=== PATIENT | male | born 1940 | race Caucasian/White ===

== ENCOUNTER 2017-11-15 14:56 | Emergency (ER) | payer MEDICARE, OTHER ==
--- NOTE | 2017-11-15 16:06 | RAD ---
Indication: Left knee pain. 4 views of the left knee demonstrates no fracture. No other bone or joint abnormality is identified. IMPRESSION: No fracture of the left knee is noted.
--- NOTE | 2017-11-15 17:10 | ED ---
Lower Extremity - HPI Summary HPI Summary: Patient is a 77-year-old male presenting to the ED with left knee pain. History of his knee giving out of joints in the past and he states it is always been able to get back into place, however he feels the knee has given out again , however has not been able to get the knee back into place. He is unable to ambulate. He is slightly flexed at the knee and states he is unable to flex or extend at the joint. There is no erythema or ecchymosis. The area is not warm or edematous. Symptoms began a few days ago and have worsened over the past few days and now is unable to ambulate completely. He has been taking Aleve morning and night. He states he has had several issues with this knee in the past, however has never had it looked at and states he would not like surgery. - History of Current Complaint Chief Complaint: EDExtremityLower Stated Complaint: LT KNEE PAIN Time Seen by Provider: 11/15/17 15:34 Hx Obtained From: Patient Mechanism Of Injury: Direct Blow Onset of Pain: Minutes Onset/Duration: Minutes Severity Initially: Moderate Severity Currently: Moderate Pain Intensity: 0 Pain Scale Used: 0-10 Numeric Timing: Constant Location: Is Discrete @ - left knee Associated Signs And Symptoms: Negative: Swelling, Redness, Bruising Aggravating Factor(s): Standing, Ambulation Alleviating Factor(s): Rest Able to Bear Weight: No - Risk Factors Gout Risk Factors: Age Over 40 DVT Risk Factors: Negative Septic Arthritis Risk Factor: Negative - Allergies/Home Medications Allergies/Adverse Reactions: Allergies Allergy/AdvReac Type Severity Reaction Status Date / Time No Known Allergies Allergy Verified 11/15/17 15:05 PMH/Surg Hx/FS Hx/Imm Hx Previously Healthy: Yes - Immunization History Hx Pertussis Vaccination: No Immunizations Up to Date: Yes Infectious Disease History: No Infectious Disease History: Denies: Traveled Outside the [place] in Last 30 Days - Social History Occupation: Unemployed Lives: With Family Alcohol Use: Occasionally Hx Substance Use: No Substance Use Type: Reports: None Smoking Status (MU): Former Smoker Review of Systems Constitutional: Negative Negative: Fever, Chills, Fatigue, Skin Diaphoresis Negative: Palpitations, Chest Pain Negative: Shortness Of Breath, Cough Negative: Abdominal Pain, Vomiting, Diarrhea Positive: Arthralgia, Myalgia Skin: Negative All Other Systems Reviewed And Are Negative: Yes Physical Exam Triage Information Reviewed: Yes Vital Signs On Initial Exam: Initial Vitals Temp Pulse Resp BP Pulse Ox 99.6 F 80 17 144/77 95 11/15/17 14:59 11/15/17 14:59 11/15/17 14:59 11/15/17 14:59 11/15/17 14:59 Vital Signs Reviewed: Yes Appearance: Positive: Well-Appearing, Well-Nourished Skin: Positive: Warm, Skin Color Reflects Adequate Perfusion Head/Face: Positive: Normal Head/Face Inspection Eyes: Positive: DANNY, Conjunctiva Clear Neck: Positive: Supple, Nontender, No Lymphadenopathy Respiratory/Lung Sounds: Positive: Clear to Auscultation, Breath Sounds Present Cardiovascular: Positive: RRR, Pulses are Symmetrical in both Upper and Lower Extremities Musculoskeletal: Positive: Limited @ - flexion and extension. Negative: Edema Left, Edema Right Neurological: Positive: Alert, Oriented to Person Place, Time, Speech Normal Psychiatric: Positive: Normal, Affect/Mood Appropriate Diagnostics - Vital Signs Vital Signs Temp Pulse Resp BP Pulse Ox 11/15/17 14:59 99.6 F 80 17 144/77 95 - Laboratory Lab Statement: Any lab studies that have been ordered have been reviewed, and results considered in the medical decision making process. Lower Extremity Course/Dx - Course Course Of Treatment: On physical examination, the knee shows no signs of infection. No erythema, warmth or swelling to the knee. The knee is slightly flexed and patient states he is unable to flex or extend. He is requesting a knee immobilizer. X-ray obtained which shows no fracture or other acute trauma. Patient remains unable to ambulate without knee brace. He is able to ambulate with a knee brace and states this has improved his symptoms. Unable to perform anterior drawer, Ranjit's test as patient states he is unable to perform these tests due to limited mobility. There is slight swelling to the lower extremity, however without pain, erythema or palpable cord to the calf. Denies any pain to the calf. Swelling likely chronic and this improves with elevation and ice. He is given knee immobilizer and orthopedic follow-up. He is encouraged to continue to take Aleve at this time. - Diagnoses Differential Diagnosis/HQI/PQRI: Positive: Sprain, Strain Provider Diagnoses: Knee injury Discharge - Sign-Out/Discharge Documenting (check all that apply): Patient Departure - Discharge Plan Condition: Stable Disposition: HOME Patient Education Materials: Swollen Knee Joint (ED) Referrals: Khanh Frausto MD [Medical Doctor] - Rebecca Grande MD [Primary Care Provider] - Additional Instructions: Aleve twice daily 3-4 days Ice to the area as much as possible Elevation Please follow-up with Dr. Jurado If symptoms worsen, return to the ED Knee immobilizer for ambulation - Billing Disposition and Condition Condition: STABLE Disposition: Home
[2017-11-15 17:11] VITALS: BP 142/80
== END 2017-11-15 17:09 | disposition home or self-care (01) ==
LOC: ED 14:56
DX: S89.92XA Unspecified injury of left lower leg, initial encounter (principal); M25.562 Pain in left knee; X58.XXXA Exposure to other specified factors, initial encounter; Y92.9 Unspecified place or not applicable; Z87.891 Personal history of nicotine dependence
CPT/HCPCS: 99282

== ENCOUNTER 2019-07-09 08:03 | Emergency (ER) | payer MEDICARE, OTHER ==
[2019-07-09] MEDS ORDERED: Lidocaine PATCH 5%* 1 PATCH TRANSDERM ONE (08:26)
[2019-07-09] MEDS ORDERED: Ketorolac *IM* INJ* 60 MG/2 ML VIAL IM ONE (08:26)
--- NOTE | 2019-07-09 08:28 | ED ---
Complex/Multi-Sys Presentation - HPI Summary HPI Summary: 79 y/o male presented to [facility] for lower back and right hip pain rated 8/10 present for weeks. Pt endorses intermittent numbness in right toes and denies constipation, urinary sx, and abdominal pain. Pt states he was showering on 06/26 when he felt a pop and has had worsening pain since. He states he can feel swelling in his hip. Pain is worse in the morning and pt has been taking Aleve for pain. Pt had surgery for 2 ruptured disks in separate procedures 4 and 5 years ago, and states he has been without pain since. Hx of HTN controlled by medication noted. - History Of Current Complaint Chief Complaint: EDBackInjuryPain Time Seen by Provider: 07/09/19 08:10 Hx Obtained From: Patient Onset/Duration: Lasting Weeks, Still Present Severity Currently: Severe Location: Pain At: - lower back, right hip Alleviating Factor(s): Aleve Associated Signs And Symptoms: Positive: Edema, Back Pain, Other - positive - hip pain, intermittent numbness to right toes; negative - urinary sx. Negative : Abdominal Pain - Allergies/Home Medications Allergies/Adverse Reactions: Allergies Allergy/AdvReac Type Severity Reaction Status Date / Time No Known Allergies Allergy Verified 07/09/19 08:09 Home Medications: Home Medications Atorvastatin* [Lipitor 20 MG*] 20 mg PO DAILY 07/09/19 [History Confirmed ] Finasteride TAB* [Proscar TAB*] 5 mg PO DAILY 07/09/19 [History Confirmed ] Irbesartan/Hydrochlor 150/12.5 1 tab PO DAILY 07/09/19 [History Confirmed ] Levothyroxine TAB* [Synthroid TAB*] 50 mcg PO DAILY 07/09/19 [History Confirmed 07/09/19] Tamsulosin CAP* [Flomax CAP*] 1 cap PO DAILY 07/09/19 [History Confirmed ] Umeclidin/Vilant 62.5 MDI(NF) [ANORO 62.5/25 Ellipta DEVICE (NF)] 1 puff INH DAILY 07/09/19 [History Confirmed 07/09/19] buPROPion HCl [Bupropion Xl] 150 mg PO DAILY 07/09/19 [History Confirmed ] hydroCHLOROthiazide [Hydrochlorothiazide] 1 cap PO DAILY 07/09/19 [History Confirmed 07/09/19] predniSONE [Prednisone 5 MG TAB] 5 mg PO DAILY 07/09/19 [History Confirmed 07/08] PMH/Surg Hx/FS Hx/Imm Hx Cardiovascular History: Reports: Hx Hypertension Sensory History: Denies: Hx Legally Blind, Hx Deafness Opthamlomology History: Denies: Hx Legally Blind EENT History: Denies: Hx Deafness Infectious Disease History: No Infectious Disease History: Denies: Traveled Outside the [place] in Last 30 Days - Family History Known Family History: Negative: Hypertension - Social History Alcohol Use: Occasionally Hx Substance Use: No Substance Use Type: Reports: None Smoking Status (MU): Former Smoker Review of Systems Gastrointestinal: Other - negative - constipation Negative: Abdominal Pain Genitourinary: Negative Positive: Edema - right hip, Other - lower back and right hip pain Positive: Numbness - intermittent, right toes All Other Systems Reviewed And Are Negative: Yes Physical Exam - Summary Physical Exam Summary: Constitutional: Well-developed, Well-nourished, Alert. (-) Distressed Skin: Warm, Dry HENT: Normocephalic; Atraumatic Eyes: Conjunctiva normal Neck: Musculoskeletal ROM normal neck. (-) JVD, (-) Stridor, (-) Tracheal deviation Cardio: Rhythm regular, rate normal, Heart sounds normal; Intact distal pulses; The pedal pulses are 2+ and symmetric. Radial pulses are 2+ and symmetric. (-) Murmur Pulmonary/Chest wall: Effort normal. (-) Respiratory distress, (-) Wheezes, (-) Rales Abd: Soft, (-) tenderness, (-) Distension, (-) Guarding, (-) Rebound Musculoskeletal: (-) Edema; Tender to palpation over region of right SI joint; Old lumbar spinal surgery scar noted; No erythema or bruising Lymph: (-) Cervical adenopathy Neuro: Alert, Oriented x3 Psych: Mood and affect Normal Triage Information Reviewed: Yes Vital Signs On Initial Exam: Initial Vitals Temp Pulse Resp BP Pulse Ox 98.8 F 91 16 149/51 95 07/09/19 08:06 07/09/19 08:06 07/09/19 08:06 07/09/19 08:06 07/09/19 08:06 Vital Signs Reviewed: Yes Procedures - Sedation Patient Received Moderate/Deep Sedation with Procedure: No Diagnostics - Vital Signs Vital Signs Temp Pulse Resp BP Pulse Ox 07/09/19 08:06 98.8 F 91 16 149/51 95 - Laboratory Lab Statement: Any lab studies that have been ordered have been reviewed, and results considered in the medical decision making process. - Radiology Xray lumbar spine Radiology Interpretation Completed By: Radiologist Summary of Radiographic Findings: IMPRESSION: STATUS POST LAMINECTOMY AND SPINAL FUSION. This report was reviewed by Dr. Henderson. Complex Multi-Symp Course/Dx Course Of Treatment: 79 y/o male presented to [facility] for lower back and right hip pain rated 8/10 present for weeks. Pt endorses intermittent numbness in right toes and denies constipation, urinary sx, and abdominal pain. Pt states he was showering on 06/27/19 when he felt a pop and has had worsening pain since. He states he can feel swelling in his hip. Pain is worse in the morning and pt has been taking Aleve for pain. Pt had surgery for 2 ruptured disks in separate procedures 4 and 5 years ago, and states he has been without pain since. Hx of HTN controlled by medication noted. Exam showed tenderness to palpation over region of right SI joint; Old lumbar spinal surgery scar noted; No erythema or bruising. X-ray lumbar spine showed STATUS POST LAMINECTOMY AND SPINAL FUSION. Pt was given 60mg IM Toradol and 1 patch transderm Lidocaine. Pt was diagnosed with Lower back pain; and discharged to home. - Diagnoses Provider Diagnoses: Lower back pain - Critical Care Time Critical Care Statement: Critical care time is provided exclusive of any time spent performing procedures. Discharge ED - Sign-Out/Discharge Documenting (check all that apply): Patient Departure - dc - Discharge Plan Condition: Stable Disposition: HOME Patient Education Materials: Back Pain (ED) Referrals: Rebecca Grande MD [Primary Care Provider] - Additional Instructions: Follow up with your primary care provider in 1-3 days. If you experience new or worsening symptoms please return to the ER. - Billing Disposition and Condition Condition: STABLE Disposition: Home - Attestation Statements Document Initiated by Scribe: Yes Documenting Scribe: Kei Stephens Provider For Whom Scribe is Documenting (Include Credential): Joseph Henderson, DO Scribe Attestation: IKei, scribed for Joseph Henderson DO on 07/09/19 at 1206. Scribe Documentation Reviewed: Yes Provider Attestation: The documentation as recorded by the Kei cates accurately reflects the service I personally performed and the decisions made by , Joseph Henderson DO Status of Scribe Document: Viewed
[2019-07-09 10:14] VITALS: BP 136/86
[2019-07-09] MEDS ORDERED: Lidocaine Patch REMOVE* 1 NOTE MISC SCH (21:00)
== END 2019-07-09 10:07 | disposition home or self-care (01) ==
LOC: ED 08:03
DX: M54.5 Low back pain (principal); R60.9 Edema, unspecified; M54.9 Dorsalgia, unspecified; I10 Essential (primary) hypertension; Z87.891 Personal history of nicotine dependence; Z79.52 Long term (current) use of systemic steroids; Z79.890 Hormone replacement therapy; Z79.899 Other long term (current) drug therapy
CPT/HCPCS: 72100; 96372; 99282; A9270-GY; J1885

== ENCOUNTER 2022-09-03 11:09 | Inpatient (IN) ==
[~2022-09-03 11:09] MED LIST: Buffered Lidocaine 1% SYRIN 1 ml INTRADERM ONE; Lactated Ringers 1000 ml BAG 1,000 ML IV SCH
[2022-09-03] MEDS ORDERED: Propofol 10 MG/ML 20 ML BTL ONE ×3 (12:07→13:25)
[2022-09-03] MEDS ORDERED: Lidocaine 2% PF 5 ML VIAL ONE (12:08)
[2022-09-03 12:09] LABS: Rapid COVID-19 Molecular Undetected (Undetected)
[2022-09-03] MEDS ORDERED: Ketamine HCL 50 mg/ml 10 ml VIAL (500 MG) ONE (12:11)
[2022-09-03] MEDS ORDERED: ceFAZolin *3* GM in NS PREMIX 3 GM/100 ML BAG IV ONE (12:24)
[2022-09-03] MEDS ORDERED: Propofol 0 MG/0 ML BTL ONE (12:30)
[2022-09-03] MEDS ORDERED: ROPIVACAINE 5 MG/ML 30 ML BTL (0.5%) ONE ×2 (14:10→14:26)
[2022-09-03] MEDS ORDERED: fentaNYL 250 mcg/5 ml 50 MCG/ML 5 ml VIAL (250 MCG) ONE (14:19)
[2022-09-03] MEDS ORDERED: Midazolam 2 mg/2 ml VIAL 1 mg/ml 2 ml VIAL (2 mg) ONE (14:23)
[2022-09-03] MEDS ORDERED: Hydrocortisone INJ 100 MG/2ML 2 ML VIAL ONE (14:35)
[2022-09-03] MEDS ORDERED: Rocuronium 50 mg VIAL 10 mg/ml 5 ml VIAL (50 mg) ONE (15:01)
[2022-09-03] MEDS ORDERED: Sterile Water for Inj 10 ML ONE (15:22)
[2022-09-03] MEDS ORDERED: Ondansetron 4 mg VIAL 2 MG/ML 2 ml VIAL IV PRN ×2 (15:23→16:18)
[2022-09-03] MEDS ORDERED: Acetaminophen IV 1 GM/100ML 1,000 MG/100 ML BAG IV PRN (15:23)
[2022-09-03] MEDS ORDERED: Naloxone 0.4 mg VIAL 0.4 mg/ml 1 ml VIAL IV PRN (15:23)
[2022-09-03] MEDS ORDERED: HYDROmorphone 1 MG/1 ML SYRINGE IV PRN (15:23)
[2022-09-03] MEDS ORDERED: Glycopyrrolate IV 0.2 MG/ML 1 ML VIAL ONE (15:52)
[2022-09-03] MEDS ORDERED: Ondansetron 4 mg VIAL 2 MG/ML 2 ml VIAL ONE (16:09)
[2022-09-03] MEDS ORDERED: Dexamethasone IV 4 MG/ML VIAL 1 ml VIAL ONE (16:09)
[2022-09-03] MEDS ORDERED: Morphine 2 MG/ML SYRINGE IV PRN (16:18)
[2022-09-03] MEDS ORDERED: Lactulose 30 ml UDC PO PRN (16:18)
[2022-09-03] MEDS ORDERED: Ondansetron ODT 4 mg TAB 4 MG TAB PO PRN (16:18)
[2022-09-03] MEDS ORDERED: Magnesium Hydroxide LIQ 30 ML UDC PO PRN (16:18)
[2022-09-03] MEDS ORDERED: LORazepam 2 mg VIAL 1 ml ONE (16:44)
[2022-09-03] MEDS ORDERED: fentaNYL 100 mcg/2 ml 50 MCG/ML VIAL ONE ×2 (18:12→18:30)
[2022-09-03] MEDS: fentaNYL 100 mcg/2 ml 50 MCG/ML VIAL IV PRN ×4 (18:16→18:34)
[2022-09-03] MEDS: Lactated Ringers 1000 ml BAG 1,000 ML IV SCH (19:30)
[2022-09-03] MEDS: Magnesium Hydroxide LIQ 30 ML UDC PO SCH (21:08)
[2022-09-03] MEDS: ceFAZolin 1 GM ADVAN 1 GM in NS 0.9% 50 ML 50 ML IVPB SCH (23:41)
[2022-09-04] MEDS: Lactated Ringers 1000 ml BAG 1,000 ML IV SCH (05:03)
[2022-09-04 06:55] LABS: Hematocrit 39.7 % (38-53); Hemoglobin 13.8 g/dL (13.2-16.3); Mean Platelet Volume 7.5 fL (7.5-11.2); Platelet Count 243 10^3/uL (150-450)
[2022-09-04 07:17] LABS: Calcium 8.6 mg/dL (8.6-10.3); Creatinine, Serum 1.53 mg/dL (0.67-1.17); Potassium 4.6 mmol/L (3.5-5.0); eGFR CKD-EPI 45.7 (>60)
[2022-09-04] MEDS: ceFAZolin 1 GM ADVAN 1 GM in NS 0.9% 50 ML 50 ML IVPB SCH ×2 (07:56→16:18)
[2022-09-04] MEDS: Magnesium Hydroxide LIQ 30 ML UDC PO SCH ×2 (08:14→21:16)
[2022-09-04] MEDS: Vitamin THERAPEUTIC TAB PO SCH (08:15)
[2022-09-04] MEDS: PTO: Umeclidin/Vilant 62.5 MDI 62.5/25 mcg 14 INH ELLIPTA DEVICE INH SCH (09:09)
[2022-09-05 06:28] LABS: Hematocrit 39.1 % (38-53); Hemoglobin 13.1 g/dL (13.2-16.3); Mean Platelet Volume 7.4 fL (7.5-11.2); Platelet Count 236 10^3/uL (150-450)
[2022-09-05] MEDS: PTO: Umeclidin/Vilant 62.5 MDI 62.5/25 mcg 14 INH ELLIPTA DEVICE INH SCH (07:02)
[2022-09-05] MEDS: Vitamin THERAPEUTIC TAB PO SCH (08:40)
[2022-09-05] MEDS: Magnesium Hydroxide LIQ 30 ML UDC PO SCH ×2 (08:40→21:09)
[2022-09-06 06:01] LABS: Hemoglobin 12.5 g/dL (13.2-16.3); Mean Platelet Volume 7.6 fL (7.5-11.2); Platelet Count 226 10^3/uL (150-450)
[2022-09-06] MEDS: PTO: Umeclidin/Vilant 62.5 MDI 62.5/25 mcg 14 INH ELLIPTA DEVICE INH SCH (07:31)
[2022-09-06] MEDS: Magnesium Hydroxide LIQ 30 ML UDC PO SCH ×2 (07:54→20:44)
[2022-09-06] MEDS: Vitamin THERAPEUTIC TAB PO SCH (07:55)
[2022-09-06 08:07] LABS: Albumin 3.3 g/dL (3.2-5.2); Albumin/Globulin Ratio 1.3 (1-3); Calcium 8.4 mg/dL (8.6-10.3); Creatinine, Serum 1.27 mg/dL (0.67-1.17); Globulin 2.5 g/dL (2-4); Magnesium 2.2 mg/dL (1.9-2.7); Potassium 4.3 mmol/L (3.5-5.0); Total Protein 5.8 g/dL (6.4-8.9); eGFR CKD-EPI 57.1 (>60)
[2022-09-06] MEDS: Lactulose 30 ml UDC PO SCH ×2 (13:04→20:44)
[2022-09-06] MEDS: Glycerin ADULT 2.4 gm SUPP PR SCH (13:28)
[2022-09-07 05:52] LABS: ABS Basophils 0.1 10^3/uL (0.0-0.1); ABS Eosinophils 0.5 10^3/uL (0.0-0.5); ABS Lymphocytes 1.1 10^3/uL (1.0-4.8); ABS Monocytes 1.2 10^3/uL (0.0-1.1); ABS Neutrophils 10.7 10^3/uL (1.5-7.6); Eosinophil % 3.6 %; Hematocrit 37.5 % (38-53); Hemoglobin 12.7 g/dL (13.2-16.3); Lymphocyte % 8.3 %; Mean Corpuscular Hemoglobin 31.6 pg (27-33); Mean Corpuscular Hgb Conc 33.9 g/dL (31-36); Mean Corpuscular Volume 93.2 fL (80-97); Mean Platelet Volume 7.4 fL (7.5-11.2); Platelet Count 249 10^3/uL (150-450); Red Blood Count 4.03 10^6/uL (4.06-5.63); Red Cell Distribution Width 13.5 % (12-17); White Blood Count 13.7 10^3/uL (3.6-10.2)
[2022-09-07 06:06] LABS: Calcium 8.6 mg/dL (8.6-10.3); Creatinine, Serum 1.36 mg/dL (0.67-1.17); Magnesium 2.3 mg/dL (1.9-2.7); Potassium 3.9 mmol/L (3.5-5.0); eGFR CKD-EPI 52.6 (>60)
[2022-09-07] MEDS: Vitamin THERAPEUTIC TAB PO SCH (07:29)
[2022-09-07] MEDS: PTO: Umeclidin/Vilant 62.5 MDI 62.5/25 mcg 14 INH ELLIPTA DEVICE INH SCH (07:51)
[2022-09-07] MEDS: Magnesium Hydroxide LIQ 30 ML UDC PO SCH ×2 (08:25→20:22)
[2022-09-07] MEDS: Lactulose 30 ml UDC PO SCH ×2 (08:25→20:21)
[2022-09-07 11:08] LABS: Urine Appearance Clear; Urine Bilirubin Negative (Negative); Urine Blood Negative (Negative); Urine Color Yellow; Urine Glucose Negative (Negative); Urine Ketones Negative (Negative); Urine Nitrite Negative (Negative); Urine Protein Negative (Negative); Urine Specific Gravity 1.025 (1.002-1.030); Urine Urobilinogen Negative (Negative)
[2022-09-07] MEDS ORDERED: Piperacillin/Tazobac ADVAN 3.375 GM in NS 0.9% 100 ml BAG 100 ML IV ONE (11:25)
[2022-09-07] MEDS ORDERED: Zosyn per Pharmacy NOTE FOLLOW UP SCH (12:00)
[2022-09-07] MEDS: Glycerin ADULT 2.4 gm SUPP PR SCH (12:35)
[2022-09-07] MEDS: ZOSYN 3.375 GM Q8H per EXTENDED INFUSION IV SCH (17:24)
[2022-09-08] MEDS: ZOSYN 3.375 GM Q8H per EXTENDED INFUSION IV SCH ×3 (00:54→18:04)
[2022-09-08 05:01] LABS: Urine Creatinine Concentration 120.3 mg/dL (20.00-370.00)
[2022-09-08 06:05] LABS: ABS Basophils 0.1 10^3/uL (0.0-0.1); ABS Eosinophils 0.6 10^3/uL (0.0-0.5); ABS Lymphocytes 1.1 10^3/uL (1.0-4.8); ABS Monocytes 0.9 10^3/uL (0.0-1.1); ABS Neutrophils 9.1 10^3/uL (1.5-7.6); Eosinophil % 5.3 %; Hematocrit 35.8 % (38-53); Hemoglobin 12.3 g/dL (13.2-16.3); Lymphocyte % 9.2 %; Mean Corpuscular Hemoglobin 32.1 pg (27-33); Mean Corpuscular Hgb Conc 34.5 g/dL (31-36); Mean Corpuscular Volume 93.1 fL (80-97); Mean Platelet Volume 7.2 fL (7.5-11.2); Platelet Count 275 10^3/uL (150-450); Red Blood Count 3.85 10^6/uL (4.06-5.63); Red Cell Distribution Width 13.3 % (12-17); White Blood Count 11.9 10^3/uL (3.6-10.2)
[2022-09-08 06:30] LABS: Calcium 8.4 mg/dL (8.6-10.3); Creatinine, Serum 1.37 mg/dL (0.67-1.17); Magnesium 2.4 mg/dL (1.9-2.7); Potassium 3.8 mmol/L (3.5-5.0); eGFR CKD-EPI 52.1 (>60)
[2022-09-08] MEDS: PTO: Umeclidin/Vilant 62.5 MDI 62.5/25 mcg 14 INH ELLIPTA DEVICE INH SCH (07:24)
[2022-09-08] MEDS: Glycerin ADULT 2.4 gm SUPP PR SCH (09:13)
[2022-09-08] MEDS: Magnesium Hydroxide LIQ 30 ML UDC PO SCH (09:15)
[2022-09-08] MEDS: Lactulose 30 ml UDC PO SCH (09:15)
[2022-09-08] MEDS: Vitamin THERAPEUTIC TAB PO SCH (09:23)
[2022-09-08] MEDS ORDERED: Lactulose 30 ml UDC PO PRN (10:05)
[2022-09-08] MEDS ORDERED: NS 0.9% 1000 ml BAG 1,000 ML IV SCH ×2 (10:15→18:30)
[2022-09-08] MEDS ORDERED: Polyethylene Glycol 3350 17 GM PACKET PO SCH (11:00)
[2022-09-08] MEDS ORDERED: Senna TAB 8.6 mg TAB PO SCH (21:00)
[2022-09-09] MEDS: ZOSYN 3.375 GM Q8H per EXTENDED INFUSION IV SCH ×2 (02:23→15:03)
[2022-09-09 06:21] LABS: ABS Eosinophils 0.6 10^3/uL (0.0-0.5); ABS Lymphocytes 1.3 10^3/uL (1.0-4.8); ABS Neutrophils 10.9 10^3/uL (1.5-7.6); Eosinophil % 4.1 %; Hematocrit 36.9 % (38-53); Hemoglobin 12.2 g/dL (13.2-16.3); Lymphocyte % 9.6 %; Mean Corpuscular Hemoglobin 30.8 pg (27-33); Mean Corpuscular Hgb Conc 33.1 g/dL (31-36); Mean Corpuscular Volume 93.2 fL (80-97); Mean Platelet Volume 7.7 fL (7.5-11.2); Platelet Count 295 10^3/uL (150-450); Red Blood Count 3.96 10^6/uL (4.06-5.63); Red Cell Distribution Width 13.2 % (12-17); White Blood Count 13.8 10^3/uL (3.6-10.2)
[2022-09-09 06:40] LABS: Calcium 8.6 mg/dL (8.6-10.3); Creatinine, Serum 1.28 mg/dL (0.67-1.17); Magnesium 2.2 mg/dL (1.9-2.7); Potassium 3.9 mmol/L (3.5-5.0); eGFR CKD-EPI 56.6 (>60)
[2022-09-09] MEDS ORDERED: Lactated Ringers 1000 ml BAG 1,000 ML IV SCH (07:31)
[2022-09-09] MEDS: PTO: Umeclidin/Vilant 62.5 MDI 62.5/25 mcg 14 INH ELLIPTA DEVICE INH SCH (07:33)
[2022-09-09] MEDS: Vitamin THERAPEUTIC TAB PO SCH (08:33)
[2022-09-09] MEDS: Polyethylene Glycol 3350 17 GM PACKET PO SCH (08:34)
[2022-09-09] MEDS ORDERED: Haloperidol 5 mg/ml SDV IV/IM 5 MG/ML AMP IM ONE (09:50)
[2022-09-09] MEDS ORDERED: Haloperidol 5 mg/ml SDV IV/IM 5 MG/ML AMP ONE (09:55)
[2022-09-09] MEDS: Haloperidol 5 mg/ml SDV IV/IM 5 MG/ML AMP IV SLOW PU ONE ×2 (09:58→10:07)
[2022-09-09] MEDS ORDERED: LORazepam 2 mg VIAL 1 ml IM ONE (10:09)
[2022-09-09] MEDS ORDERED: Lorazepam PYXIS KEY PRN ×2 (10:09→15:13)
[2022-09-09] MEDS ORDERED: LORazepam 2 mg VIAL 1 ml ONE ×2 (10:11→15:17)
[2022-09-09] MEDS ORDERED: chlorproMAZINE 25 MG/ML 2 ML (50 MG) IM ONE (10:47)
[2022-09-09] MEDS: ZOSYN 3.375 GM Q6H IV SCH ×2 (12:39→17:36)
[2022-09-09] MEDS ORDERED: chlorproMAZINE 25 MG/ML 2 ML (50 MG) IM PRN (13:20)
[2022-09-09] MEDS ORDERED: LORazepam 2 mg VIAL 1 ml IV PUSH ONE (15:13)
[2022-09-09] MEDS: NS 0.9% 1000 ml BAG 1,000 ML IV SCH (20:52)
[2022-09-10] MEDS: ZOSYN 3.375 GM Q6H IV SCH ×4 (00:02→17:30)
[2022-09-10] MEDS: NS 0.9% 1000 ml BAG 1,000 ML IV SCH (03:34)
[2022-09-10 05:57] LABS: ABS Basophils 0.1 10^3/uL (0.0-0.1); ABS Eosinophils 0.5 10^3/uL (0.0-0.5); ABS Lymphocytes 1.1 10^3/uL (1.0-4.8); ABS Neutrophils 9.7 10^3/uL (1.5-7.6); Hematocrit 33.2 % (38-53); Hemoglobin 11.2 g/dL (13.2-16.3); Mean Corpuscular Hemoglobin 31.8 pg (27-33); Mean Corpuscular Hgb Conc 33.7 g/dL (31-36); Mean Corpuscular Volume 94.6 fL (80-97); Mean Platelet Volume 7.2 fL (7.5-11.2); Platelet Count 291 10^3/uL (150-450); Red Blood Count 3.51 10^6/uL (4.06-5.63); Red Cell Distribution Width 13.3 % (12-17); White Blood Count 12.3 10^3/uL (3.6-10.2)
[2022-09-10 06:11] LABS: Albumin/Globulin Ratio 1.1 (1-3); Calcium 8.1 mg/dL (8.6-10.3); Creatinine, Serum 1.19 mg/dL (0.67-1.17); Globulin 2.8 g/dL (2-4); Potassium 3.6 mmol/L (3.5-5.0); Total Protein 5.8 g/dL (6.4-8.9); eGFR CKD-EPI 61.8 (>60)
[2022-09-10] MEDS: PTO: Umeclidin/Vilant 62.5 MDI 62.5/25 mcg 14 INH ELLIPTA DEVICE INH SCH ×2 (07:02→12:14)
[2022-09-10] MEDS: Polyethylene Glycol 3350 17 GM PACKET PO SCH (09:52)
[2022-09-10] MEDS: Vitamin THERAPEUTIC TAB PO SCH (09:53)
[2022-09-10] MEDS ORDERED: Potassium Chlor 20 meq TAB.ER PO ONE (10:23)
[2022-09-10] MEDS ORDERED: CALCIUM GLUCONATE 1GM/50ML NS 1 GM/50 ML BAG IV ONE (11:46)
[2022-09-10] MEDS ORDERED: D5W 500 ml BAG 500 ML IV SCH (12:00)
[2022-09-11] MEDS: ZOSYN 3.375 GM Q6H IV SCH ×3 (00:07→12:22)
[2022-09-11 05:41] LABS: ABS Basophils 0.1 10^3/uL (0.0-0.1); ABS Eosinophils 0.5 10^3/uL (0.0-0.5); ABS Lymphocytes 1.3 10^3/uL (1.0-4.8); ABS Monocytes 1.1 10^3/uL (0.0-1.1); ABS Neutrophils 10.4 10^3/uL (1.5-7.6); Eosinophil % 3.6 %; Hematocrit 35.3 % (38-53); Hemoglobin 11.7 g/dL (13.2-16.3); Lymphocyte % 9.5 %; Mean Corpuscular Hemoglobin 31.1 pg (27-33); Mean Corpuscular Hgb Conc 33.3 g/dL (31-36); Mean Corpuscular Volume 93.5 fL (80-97); Mean Platelet Volume 7.2 fL (7.5-11.2); Platelet Count 326 10^3/uL (150-450); Red Blood Count 3.77 10^6/uL (4.06-5.63); Red Cell Distribution Width 13.4 % (12-17); White Blood Count 13.4 10^3/uL (3.6-10.2)
[2022-09-11 06:00] LABS: Calcium 8.5 mg/dL (8.6-10.3); Creatinine, Serum 1.26 mg/dL (0.67-1.17); Potassium 3.7 mmol/L (3.5-5.0); eGFR CKD-EPI 57.7 (>60)
[2022-09-11] MEDS: PTO: Umeclidin/Vilant 62.5 MDI 62.5/25 mcg 14 INH ELLIPTA DEVICE INH SCH (07:47)
[2022-09-11] MEDS: Vitamin THERAPEUTIC TAB PO SCH (08:13)
[2022-09-11] MEDS: Polyethylene Glycol 3350 17 GM PACKET PO SCH (08:13)
[2022-09-12] MEDS: PTO: Umeclidin/Vilant 62.5 MDI 62.5/25 mcg 14 INH ELLIPTA DEVICE INH SCH (07:23)
[2022-09-12] MEDS: Polyethylene Glycol 3350 17 GM PACKET PO SCH (09:09)
[2022-09-12] MEDS: Vitamin THERAPEUTIC TAB PO SCH (09:11)
[2022-09-12 10:39] VITALS: BP 126/78
== END 2022-09-12 11:49 | disposition home or self-care (01) | DRG 469 ==
LOC: SSU 11:09 → OR 11:09 → SSU 09-07 16:43
PROVIDERS: ADMIT Orthopaedic Surgery Adult Reconstructive Orthopaedic Surgery; ATTEND Orthopaedic Surgery Adult Reconstructive Orthopaedic Surgery

== ENCOUNTER 2022-09-22 11:02 | Observation (INO) ==
[2022-09-22] MEDS ORDERED: Polyethylene Glycol 3350 17 GM PACKET PO PRN (15:35)
[2022-09-22] MEDS ORDERED: Senna TAB 8.6 mg TAB PO PRN (15:35)
[2022-09-23 06:17] LABS: Hematocrit 39.3 % (38-53); Hemoglobin 13.3 g/dL (13.2-16.3); Mean Corpuscular Hemoglobin 31.9 pg (27-33); Mean Corpuscular Hgb Conc 33.9 g/dL (31-36); Platelet Count 388 10^3/uL (150-450); Red Blood Count 4.18 10^6/uL (4.06-5.63); Red Cell Distribution Width 13.9 % (12-17); White Blood Count 14.5 10^3/uL (3.6-10.2)
[2022-09-23 06:32] LABS: Blood Urea Nitrogen 28 mg/dL (6-24); CO2 Carbon Dioxide 29 mmol/L (22-32); Calcium 9.1 mg/dL (8.6-10.3); Chloride 101 mmol/L (101-111); Creatinine, Serum 1.31 mg/dL (0.67-1.17); Glucose 116 mg/dL (70-100); Magnesium 2.2 mg/dL (1.9-2.7); Sodium 137 mmol/L (135-145)
[2022-09-23 06:44] LABS: Anion Gap 7 mmol/L (2-16)
[2022-09-23 07:32] LABS: ABS Basophils 0.1 10^3/uL (0.0-0.1); ABS Eosinophils 0.4 10^3/uL (0.0-0.5); ABS Lymphocytes 1.3 10^3/uL (1.0-4.8); ABS Monocytes 1.3 10^3/uL (0.0-1.1); ABS Neutrophils 11.4 10^3/uL (1.5-7.6); Eosinophil % 2.9 %; Lymphocyte % 9.3 %; RBC Morphology Normal (Normal)
[2022-09-23] MEDS: Tiotropium Brom/Olodaterol MDI (ACUTE) INH SCH (09:39)
[2022-09-24] MEDS: Tiotropium Brom/Olodaterol MDI (ACUTE) INH SCH (07:10)
[2022-09-24 08:50] LABS: ABS Basophils 0.1 10^3/uL (0.0-0.1); ABS Eosinophils 0.5 10^3/uL (0.0-0.5); ABS Lymphocytes 1.3 10^3/uL (1.0-4.8); ABS Monocytes 1.1 10^3/uL (0.0-1.1); ABS Neutrophils 9.5 10^3/uL (1.5-7.6); ABS Nucleated RBC 0.01 10^3/ul; Hematocrit 39.2 % (38-53); Hemoglobin 13.1 g/dL (13.2-16.3); Lymphocyte % 10.4 %; Mean Corpuscular Hemoglobin 31.4 pg (27-33); Mean Corpuscular Hgb Conc 33.5 g/dL (31-36); Mean Corpuscular Volume 93.6 fL (80-97); Mean Platelet Volume 7.1 fL (7.5-11.2); Nucleated Red Blood Cells % 0.1 /100 WBC (0.0-0.4); Platelet Count 379 10^3/uL (150-450); Red Blood Count 4.19 10^6/uL (4.06-5.63); Red Cell Distribution Width 13.6 % (12-17); White Blood Count 12.4 10^3/uL (3.6-10.2)
[2022-09-24 09:06] LABS: Calcium 8.8 mg/dL (8.6-10.3); Creatinine, Serum 1.27 mg/dL (0.67-1.17); Potassium 3.7 mmol/L (3.5-5.0); eGFR CKD-EPI 57.1 (>60)
[2022-09-25] MEDS: Tiotropium Brom/Olodaterol MDI (ACUTE) INH SCH (07:56)
[2022-09-25] MEDS: Polyethylene Glycol 3350 17 GM PACKET PO SCH (10:40)
[2022-09-26] MEDS: Polyethylene Glycol 3350 17 GM PACKET PO SCH (08:50)
[2022-09-26] MEDS: Tiotropium Brom/Olodaterol MDI (ACUTE) INH SCH (08:53)
[2022-09-26 13:59] VITALS: BP 134/69
== END 2022-09-26 15:15 | disposition swing bed (61) ==
LOC: EDHOLD 11:02 → ED 11:02 → MED 09-23 14:07
PROVIDERS: ADMIT Internal Medicine; ATTEND Internal Medicine

== ENCOUNTER 2022-09-26 15:16 | Inpatient (IN) ==
[2022-09-26] MEDS: Senna TAB 8.6 mg TAB PO SCH (18:01)
[2022-09-27] MEDS: Tiotropium Brom/Olodaterol MDI (ACUTE) INH SCH ×2 (06:43→07:09)
[2022-09-27] MEDS: CMCS: Irbesartan 150 mg TAB (NF) PO SCH (07:57)
[2022-09-27] MEDS: Polyethylene Glycol 3350 17 GM PACKET PO SCH (07:58)
[2022-09-27] MEDS ORDERED: Irbesartan/Hydrochlor 150/12.5 TAB PO SCH (09:00)
[2022-09-27] MEDS: Senna TAB 8.6 mg TAB PO SCH (22:02)
[2022-09-28] MEDS: Tiotropium Brom/Olodaterol MDI (ACUTE) INH SCH (07:56)
[2022-09-28] MEDS: Polyethylene Glycol 3350 17 GM PACKET PO SCH (08:21)
[2022-09-28] MEDS: CMCS: Irbesartan 150 mg TAB (NF) PO SCH (08:21)
[2022-09-28 11:15] VITALS: BP 115/67
== END 2022-09-28 14:30 | DRG 566 ==
LOC: SUATTDRO 15:16 → MED 15:16
PROVIDERS: ADMIT Internal Medicine; ATTEND Internal Medicine